=== PATIENT | female | born 2000 | race Two or more races ===

== ENCOUNTER 2022-12-02 19:36 | Emergency (ER) | payer MEDICAID, OTHER ==
[~2022-12-02] VITALS: Ht 165.1 cm; Wt 72.0 kg
[2022-12-03] MEDS ORDERED: CLIN300C70 PO ×3 (03:35→03:50)
[2022-12-03] MEDS ORDERED: ACET500T58 PO (03:35)
[2022-12-03] MEDS ORDERED: cefTRIAXone SOD 1,000 MG VL IM ONE (03:45)
[2022-12-03 04:32] VITALS: BP 121/64; PULSE 97; RESP 18; TEMP 98.5; O2SAT 94
== END 2022-12-03 04:10 | disposition home or self-care (01) ==
LOC: ER 19:36
DX: T63.301A Toxic effect of unspecified spider venom, accidental (unintentional), initial encounter (principal); L03.313 Cellulitis of chest wall; Z79.1 Long term (current) use of non-steroidal anti-inflammatories (NSAID); Z79.899 Other long term (current) drug therapy; Y92.89 Other specified places as the place of occurrence of the external cause
CPT/HCPCS: 96372; 99283; J0696